=== PATIENT | female | born 1975 | race African-American/Black ===

== ENCOUNTER 2017-07-16 12:23 | Emergency (ER) | payer BC, OTHER ==
[~2017-07-16] VITALS: Ht 167.6 cm; Wt 59.0 kg
[2017-07-16 14:48] VITALS: BP 119/72
== END 2017-07-16 15:43 | disposition home or self-care (01) ==
LOC: ER 12:23 → EDBD 12:23 → ER 15:43
DX: S50.812A Abrasion of left forearm, initial encounter (principal); V43.52XA Car driver injured in collision with other type car in traffic accident, initial encounter; Y93.89 Activity, other specified; Y92.411 Interstate highway as the place of occurrence of the external cause; Y99.8 Other external cause status
CPT/HCPCS: 73090